=== PATIENT | female | born 1990 | race Caucasian/White ===

== ENCOUNTER 2023-07-08 23:16 | Emergency (ER) | payer BC ==
--- OUTSIDE RECORDS SUMMARY | 2023-07-08 23:19 | XMS REPORT | Continuity of Care Document ---
:1990 Author Organization [facility] t Address [address] [place] [address] [address] [place] [address] Care Team Providers Name Role Phone Claire Peters MD Primary Care Physician [phone] SCOTT BRITT III Attending Clinician Unavailable LAB90 Attending Clinician Unavailable Claire Peters MD Attending Clinician [phone] VEL FORD Attending Clinician Unavailable Nurse, Adc Pob Immunization Attending Clinician Unavailable Vel Ford DO Attending Clinician MAYKEL FROST Attending Clinician Unavailable Jacqueline Sanderson MD Attending Clinician JACQUELINE SANDERSON Attending Clinician Unavailable KASIE MORENO Attending Clinician Unavailable Kasie Moreno MD Attending Clinician Scott Britt MD Attending Clinician Only, Adc Test Attending Clinician Unavailable Doctor Unassigned, [place] Attending Clinician Unavailable Motility, Endoscopy Attending Clinician Unavailable 2, Adc Lab Attending Clinician Unavailable SCOTT BRITT III Admitting Clinician Unavailable JACQUELINE SANDERSON Admitting Clinician Unavailable Scott Britt MD Admitting Clinician Payers Payer Name Policy Type Policy Number Effective Date Expiration Date S ource [employer] CHOICE POS [id number] 2019 00:00:00 II [employer] 2 [id number] 2022 00:00:00 Problems Condition Condition Condition Status Onset Resolution Last Treating Co mments Source Name Details Category Date Date Treatment Clinician Date Flatulence Flatulence Disease Active Overview : Univers , , 07-01 Formattin ity of eructation eructation 00:00: g of this [place] , and gas , and gas 00 note Medi saúl pain pain might be Branch different from the original. Added automatic ally from request for surgery [id number] Seasonal Seasonal Disease Active 2016-10 Unive rs allergic allergic 11-15 ity of rhinitis rhinitis 00:00: [place] 00 Medical Branch Migraine Migraine Disease Active 2016-10 Unive rs without without 11-15 ity of aura and aura and 00:00: [place] without without 00 Medical status status Branch migrainosu migrainosu s, not s, not intractabl intractabl e e Irritable Irritable Disease Active 2016-10 Uni vers bowel bowel 11-15 ity of syndrome, syndrome, [place] un[place] unspecif[place] 00 Me dical d type d type Branch No known No known Disease Kelse y active active [place] problems problems Allergies, Adverse Reactions, Alerts Allergy Allergy Status Severity Reaction(s) Onset Inactive Treating Comm ents Source Name Type Date Date Clinician NO KNOWN Drug Active Univers ALLERGIE Class ity of S [facility] Social History Social Habit Start Date Stop Date Quantity Comments Source Exposure to Not sure University of SARS-CoV-2 [place] [facility] (event) Branch History SDOH University o f Alcohol Frequency [facility] edical Branch History SDOH University o f Alcohol Std [place] [facility] Drinks Branch History SDOH University o f Alcohol Binge [place] [facility] Alcohol intake 2020-08-06 2020-08-06 Current drinker Unive rsity of 00:00:00 00:00:00 of alcohol [place] [facility] (finding) Branch Alcohol Comment 2017-07-18 2017-07-18 socially Universit y of 00:00:00 00:00:00 [facility] Tobacco use and 2017-07-18 2017-07-18 Never used Universit y of exposure 00:00:00 00:00:00 [facility] Sex [birth year] At [birth year] Priscila Se ybold 00:00:00 00:00:00 Smoking Status Start Date Stop Date Source Never smoked tobacco Priscila Seyb old Medications Ordered Filled Start Stop Current Ordering Indication Dosage Frequency Signature Comments Components Source Medication Medication Date Date Medication? Clinician (SIG) Name Name Batsheva Yes 1{tbl} Take 1 Priscila 0.15-0.02/0 5-23 tablet by Inna bold .01 MG 00:00: mouth (19/03) oral 00 daily Tablet Terbinafine Yes 1{tbl} Take 1 Ke lsey HCl 250 MG 5- tablet by Seyb old oral Tablet 00:00: mouth 00 daily NaCl 0.9% 2020- No 1000mL at 999 Uni vers (NS) bolus 1-10 01-10 mL/hr, ity of infusion 18:00: 18:43 1,000 mL, Jeancarlos as 1,000 mL 00 :00 IV Medical Infusion, Branch ONCE, 1 dose, 11/08/20 at 1200, STAT barium 2019-10- No 340g 340 g, Univers sulfate 0-14 10-14 Oral, ity of (LIQUID E-Z 14:30: 13:30 [place]CE, [place] 60 % 00 :00 dose, Wed Med ical (w/v) oral 08/12/20 Branc h suspension at 0930, 340 g Routine hyoscyamine 2020-[id number] 1 Univers sulfate 8-20 tablet ity of (LEVSIN/SL) 00:00: under the [place] 0.125 mg 00 tongue Medical sublingual every 8 Branch tablet (eight) hours as needed (abdominal cramps). hyoscyamine 2020-[id number] 1 Univers sulfate 8-20 tablet ity of (LEVSIN/SL) 00:00: under the [place] 0.125 mg 00 tongue Medical sublingual every 8 Branch tablet (eight) hours as needed (abdominal cramps). hyoscyamine 2020-[id number] 1 Univers sulfate 8-20 tablet ity of (LEVSIN/SL) 00:00: under the [place] 0.125 mg 00 tongue Medical sublingual every 8 Branch tablet (eight) hours as needed (abdominal cramps). hyoscyamine 2020-[id number] 1 Univers sulfate 8-20 tablet ity of (LEVSIN/SL) 00:00: under the [place] 0.125 mg 00 tongue Medical sublingual every 8 Branch tablet (eight) hours as needed (abdominal cramps). hyoscyamine 2020-[id number] 1 Univers sulfate 8-20 tablet ity of (LEVSIN/SL) 00:00: under the [place] 0.125 mg 00 tongue Medical sublingual every 8 Branch tablet (eight) hours as needed (abdominal cramps). hyoscyamine 2020-[id number] 1 Univers sulfate 8-20 tablet ity of (LEVSIN/SL) 00:00: under the [place] 0.125 mg 00 tongue Medical sublingual every 8 Branch tablet (eight) hours as needed (abdominal cramps). hyoscyamine 2020-[id number] 1 Univers sulfate 8-20 tablet ity of (LEVSIN/SL) 00:00: under the [place] 0.125 mg 00 tongue Medical sublingual every 8 Branch tablet (eight) hours as needed (abdominal cramps). hyoscyamine 2020-[id number] 1 Univers sulfate 8-20 tablet ity of (LEVSIN/SL) 00:00: under the [place] 0.125 mg 00 tongue Medical sublingual every 8 Branch tablet (eight) hours as needed (abdominal cramps). hyoscyamine 2020-[id number] 1 Univers sulfate 8-20 tablet ity of (LEVSIN/SL) 00:00: under the [place] 0.125 mg 00 tongue Medical sublingual every 8 Branch tablet (eight) hours as needed (abdominal cramps). hyoscyamine 2020-[id number] 1 Univers sulfate 8-20 tablet ity of (LEVSIN/SL) 00:00: under the [place] 0.125 mg 00 tongue Medical sublingual every 8 Branch tablet (eight) hours as needed (abdominal cramps). hyoscyamine 2020-[id number] 1 Univers sulfate 8-20 tablet ity of (LEVSIN/SL) 00:00: under the [place] 0.125 mg 00 tongue Medical sublingual every 8 Branch tablet (eight) hours as needed (abdominal cramps). hyoscyamine 2020-[id number] 1 Univers sulfate 8-20 tablet ity of (LEVSIN/SL) 00:00: under the [place] 0.125 mg 00 tongue Medical sublingual every 8 Branch tablet (eight) hours as needed (abdominal cramps). hyoscyamine 2020-[id number] 1 Univers sulfate 8-20 tablet ity of (LEVSIN/SL) 00:00: under the [place] 0.125 mg 00 tongue Medical sublingual every 8 Branch tablet (eight) hours as needed (abdominal cramps). hyoscyamine 2020-[id number] 1 Univers sulfate 8-20 tablet ity of (LEVSIN/SL) 00:00: under the [place] 0.125 mg 00 tongue Medical sublingual every 8 Branch tablet (eight) hours as needed (abdominal cramps). dicyclomine 2016-10 Yes 1 - 2 Caps Univers 10 mg 1-17 Q6h prn ity of capsule 00:00: abdominal [place] 00 cramping Medical Branch dicyclomine 2017- Yes 1 - 2 Caps Univers 10 mg 1-17 Q6h prn ity of capsule 00:00: abdominal [place] 00 cramping Medical Branch dicyclomine 2016- Yes 1 - 2 Caps Univers 10 mg 1-17 Q6h prn ity of capsule 00:00: abdominal [place] 00 cramping Medical Branch dicyclomine 2016- Yes 1 - 2 Caps Univers 10 mg 1-17 Q6h prn ity of capsule 00:00: abdominal [place] 00 cramping Medical Branch dicyclomine 2017- Yes 1 - 2 Caps Univers 10 mg 1-17 Q6h prn ity of capsule 00:00: abdominal [place] 00 cramping Medical Branch dicyclomine 2017- Yes 1 - 2 Caps Univers 10 mg 1-17 Q6h prn ity of capsule 00:00: abdominal [place] 00 cramping Medical Branch dicyclomine 2017- Yes 1 - 2 Caps Univers 10 mg 1-17 Q6h prn ity of capsule 00:00: abdominal [place] 00 cramping Medical Branch dicyclomine 2016- Yes 1 - 2 Caps Univers 10 mg 1-17 Q6h prn ity of capsule 00:00: abdominal [place] 00 cramping Medical Branch dicyclomine 2016-10 2020- No 1 - 2 Caps Univers 10 mg 1-17 08-20 Q6h prn ity of capsule 00:00: 00:00 [place] 00 :00 cramping Medical Branch VIORELE, Yes TK 1 T PO Univ ers , 07-12 QD ity of 0.15-0.02 00:00: [place] mgx21 /0.01 00 Medical mg x 5 per Branch tablet VIORELE, Yes TK 1 T PO Univ ers , 07-12 QD ity of 0.15-0.02 00:00: [place] mgx21 /0.01 00 Medical mg x 5 per Branch tablet VIORELE, Yes TK 1 T PO Univ ers 07-12 QD ity of 0.15-0.02 00:00: [place] mgx21 /0.01 00 Medical mg x 5 per Branch tablet VIORELE, Yes TK 1 T PO Univ ers 07-12 QD ity of 0.15-0.02 00:00: [place] mgx21 /0.01 00 Medical mg x 5 per Branch tablet VIORELE, Yes TK 1 T PO Univ ers 07-12 QD ity of 0.15-0.02 00:00: [place] mgx21 /0.01 00 Medical mg x 5 per Branch tablet VIORELE, Yes TK 1 T PO Univ ers 07-12 QD ity of 0.15-0.02 00:00: [place] mgx21 /0.01 00 Medical mg x 5 per Branch tablet VIORELE, Yes TK 1 T PO Univ ers 07-12 QD ity of 0.15-0.02 00:00: [place] mgx21 /0.01 00 Medical mg x 5 per Branch tablet VIORELE, Yes TK 1 T PO Univ ers 07-12 QD ity of 0.15-0.02 00:00: [place] mgx21 /0.01 00 Medical mg x 5 per Branch tablet VIORELE, Yes TK 1 T PO Univ ers 07-12 QD ity of 0.15-0.02 00:00: [place] mgx21 /0.01 00 Medical mg x 5 per Branch tablet VIORELE, Yes TK 1 T PO Univ ers 07-12 QD ity of 0.15-0.02 00:00: [place] mgx21 /0.01 00 Medical mg x 5 per Branch tablet VIORELE, Yes TK 1 T PO Univ ers 07-12 QD ity of 0.15-0.02 00:00: [place] mgx21 /0.01 00 Medical mg x 5 per Branch tablet VIORELE, Yes TK 1 T PO Univ ers 07-12 QD ity of 0.15-0.02 00:00: [place] mgx21 /0.01 00 Medical mg x 5 per Branch tablet VIORELE, Yes TK 1 T PO Univ ers 07-12 QD ity of 0.15-0.02 00:00: [place] mgx21 /0.01 00 Medical mg x 5 per Branch tablet VIORELE, Yes TK 1 T PO Univ ers 07-12 QD ity of 0.15-0.02 00:00: [place] mgx21 /0.01 00 Medical mg x 5 per Branch tablet VIORELE, Yes TK 1 T PO Univ ers 07-12 QD ity of 0.15-0.02 00:00: [place] mgx21 /0.01 00 Medical mg x 5 per Branch tablet VIORELE, Yes TK 1 T PO Univ ers 07-12 QD ity of 0.15-0.02 00:00: [place] mgx21 /0.01 00 Medical mg x 5 per Branch tablet VIORELE, Yes TK 1 T PO Univ ers 07-12 QD ity of 0.15-0.02 00:00: [place] mgx21 /0.01 00 Medical mg x 5 per Branch tablet VIORELE, Yes TK 1 T PO Univ ers 07-12 QD ity of 0.15-0.02 00:00: [place] mgx21 /0.01 00 Medical mg x 5 per Branch tablet VIORELE, Yes TK 1 T PO Univ ers 07-12 QD ity of 0.15-0.02 00:00: [place] mgx21 /0.01 00 Medical mg x 5 per Branch tablet VIORELE, Yes TK 1 T PO Univ ers 07-12 QD ity of 0.15-0.02 00:00: [place] mgx21 /0.01 00 Medical mg x 5 per Branch tablet VIORELE, Yes TK 1 T PO [facility] ers 07-12 QD ity of 0.15-0.02 00:00: [place] mgx21 /0.01 00 Medical mg x 5 per Branch tablet VIORELE, Yes TK 1 T PO [facility] ers 07-12 QD ity of 0.15-0.02 00:00: [place] mgx21 /0.01 00 Medical mg x 5 per Branch tablet Immunizations Ordered Filled Immunization Date Status Comments [facility] e Immunization Name Name SARS-COV-2 COVID-19 2021-10-08 Completed Unive rsity of MODERNA BOOSTER 00:00:00 [facility] Branch SARS-COV-2 COVID-19 2021-03-01 Completed Unive rsity of MODERNA VACCINE 00:00:00 [facility] SARS-COV-2 COVID-19 2021-02-01 Completed Unive rsity of MODERNA VACCINE 00:00:00 [facility] Influenza Virus 2017-09-15 Completed Priscila qiuold Vaccine, No 00:00:00 Preserv, age 6 months and up Influenza Virus 2017-09-15 Completed Universit y of Vaccine Quad IM 3+ 00:00:00 [facility] Influenza Virus 2017-09-15 Completed Universit y of Vaccine Quad IM 3+ 00:00:00 [facility] Influenza Virus 2017-09-15 Completed Universit y of Vaccine Quad IM 3+ 00:00:00 [facility] Influenza Virus 2017-09-15 Completed Universit y of Vaccine Quad IM 3+ 00:00:00 [facility] Influenza Virus 2017-09-15 Completed Universit y of Vaccine Quad IM 3+ 00:00:00 [facility] Influenza Virus 2017-09-15 Completed Universit y of Vaccine Quad IM 3+ 00:00:00 [facility] Influenza Virus 2017-09-15 Completed Universit y of Vaccine Quad IM 3+ 00:00:00 [facility] Influenza Virus 2017-09-15 Completed Universit y of Vaccine Quad IM 3+ 00:00:00 [facility] Influenza Virus 2017-09-15 Completed Universit y of Vaccine Quad IM 3+ 00:00:00 [facility] Influenza Virus 2017-09-15 Completed Universit y of Vaccine Quad IM 3+ 00:00:00 [facility] Influenza Virus 2017-09-15 Completed Universit y of Vaccine Quad IM 3+ 00:00:00 [facility] Influenza Virus 2017-09-15 Completed Universit y of Vaccine Quad IM 3+ 00:00:00 [facility] Influenza Virus 2017-09-15 Completed Universit y of Vaccine Quad IM 3+ 00:00:00 [facility] Influenza Virus 2017-09-15 Completed Universit y of Vaccine Quad IM 3+ 00:00:00 [facility] Influenza Virus 2017-09-15 Completed Universit y of Vaccine Quad IM 3+ 00:00:00 [facility] Influenza Virus 2017-09-15 Completed Universit y of Vaccine Quad IM 3+ 00:00:00 [facility] Influenza Virus 2017-09-15 Completed Universit y of Vaccine Quad IM 3+ 00:00:00 [facility] Influenza Virus 2017-09-15 Completed Universit y of Vaccine Quad IM 3+ 00:00:00 [facility] Influenza Virus 2017-09-15 Completed Universit y of Vaccine Quad IM 3+ 00:00:00 [facility] Influenza Virus 2017-09-15 Completed Universit y of Vaccine Quad IM 3+ 00:00:00 [facility] Influenza Virus 2017-09-15 Completed Universit y of Vaccine Quad IM 3+ 00:00:00 [facility] Influenza Virus 2017-09-15 Completed Universit y of Vaccine Quad IM 3+ 00:00:00 [facility] Vital Signs Vital Name Observation Time Observation Value Comments Source Heart rate 2022-03-24 19:53:00 70 /min Priscila dos santos Body temperature 2022-03-24 19:53:00 36.17 Joan Emma Hernandez Respiratory rate 2022-03-24 19:53:00 14 /min Emma Hernandez Body height 2022-03-24 19:53:00 170.2 cm Priscila dos santos Body weight 2022-03-24 19:53:00 70.308 kg Priscila dos santos BMI 2022-03-24 19:53:00 24.28 kg/m2 Priscila dos santos Systolic blood 2022-03-24 19:53:00 118 mm[Hg] Priscila Hernandez pressure Diastolic blood 2022-03-24 19:53:00 78 mm[Hg] Slime Hernandez pressure Systolic blood 2020-11-08 17:10:00 126 mm[Hg] Univer sity of pressure [place] [facility] Diastolic blood 2020-11-08 17:10:00 77 mm[Hg] Unive rsity of pressure [place] [facility] Heart rate 2020-11-08 17:10:00 109 /min Universi ty of [place] [facility] Respiratory rate 2020-11-08 17:10:00 18 /min Univ ersity of [place] [facility] Oxygen saturation in 2020-11-08 17:10:00 98 /min University of Arterial blood by [place] [facility] Pulse oximetry Branch Body temperature 2020-11-08 16:25:00 36.72 Joan Univ ersity of [place] [facility] Body weight 2020-11-08 16:25:00 61.236 kg Universi ty of [place] [facility] BMI 2020-11-08 16:25:00 21.14 kg/m2 Universi ty of [place] [facility] Systolic blood 2020-08-06 14:05:00 133 mm[Hg] Univer sity of pressure [place] [facility] Diastolic blood 2020-08-06 14:05:00 82 mm[Hg] Unive rsity of pressure [place] [facility] Heart rate 2020-08-06 14:05:00 100 /min Universi ty of [place] [facility] Body temperature 2020-08-06 14:05:00 36.83 Joan Univ ersity of [place] [facility] Respiratory rate 2020-08-06 14:05:00 18 /min Univ ersity of [place] [facility] Body height 2020-08-06 14:05:00 170.2 cm Universi ty of [place] [facility] Body weight 2020-08-06 14:05:00 61.236 kg Universi ty of [place] [facility] BMI 2020-08-06 14:05:00 21.14 kg/m2 Universi ty of [place] [facility] Oxygen saturation in 2020-08-06 14:05:00 99 /min University of Arterial blood by [place] Noosh saúl Pulse oximetry Branch Systolic blood 2020-04-24 13:58:00 115 mm[Hg] Univer sity of pressure [place] [facility] Diastolic blood 2020-04-24 13:58:00 80 mm[Hg] Unive rsity of pressure [facility] Heart rate 2020-04-24 13:58:00 87 /min [facility] Body temperature 2020-04-24 13:58:00 36.39 Joan [facility] Body height 2020-04-24 13:58:00 170.2 cm [facility] Body weight 2020-04-24 13:58:00 62.732 kg [facility] BMI 2020-04-24 13:58:00 21.66 kg/m2 [facility] Oxygen saturation in 2020-04-24 13:58:00 100 /min [facility] Arterial blood by [facility] Pulse oximetry [place] Procedures Procedure Date / Time Performed Performing Clinician [facility] e SARS-COV-2 COVID-19 2021-10-08 20:02:14 [facility]igned, [facility] Name [facility] BOOSTER,0.25ML,IM (MODERNA) CT CERVICAL SPINE WO 2020-11-08 17:41:10 Jacqueline Sanderson [facility] CONTRAST [facility] CT HEAD WO CONTRAST 2020-11-08 17:41:10 Jacqueline Sanderson [facility] XR HIP 1 VW RIGHT 2020-11-08 17:40:47 Kin [facility] POCT TEST 2020-11-08 17:23:00 Jacqueline Sanderson [facility] LIPASE 2020-11-08 17:17:00 Jacqueline Sanderson [facility] TROPONIN I 2020-11-08 17:17:00 Kin Jacqueline [facility] HEPATIC FUNCTION PANEL 2020-11-08 17:17:00 Jacqueline Sanderson [facility] ([id number]) [facility] (ALB,T.PRO,BILI T,BU/BC,ALT,AST,ALK PHOS) BASIC METABOLIC PANEL 2020-11-08 17:17:00 Jacqueline Sanderson [facility] (NA, K, CL, CO2, Medical Branch GLUCOSE, BUN, CREATININE, CA) CBC WITH DIFF 2020-11-08 17:17:00 Jacqueline Sanderson [facility] ACTIVATED PARTIAL 2020-11-08 17:17:[address] [facility] THRMPLAS FIONA [facility] URINALYSIS 2020-11-08 17:16:00 Jacqueline Sanderson Quitaque o f [facility] ADC / LCC - DRUG 2020-11-08 17:16:[address] [facility] SCREEN TRIAGE [facility] HB ECG ROUTINE & 2020-11-08 17:05:[address] [facility] RHYTHM STRIP [facility] Branch CONSENT/REFUSAL FOR 2020-11-08 16:15:59 Doctor Unassigned, No [facility] DIAGNOSIS AND [facility] Medical Branch TREATMENT [place] BARIUM SWALLOW 2020-08-12 14:26:[address] [facility] ESOPHAGUS [facility] Branch ASSIGNMENT OF BENEFITS 2020-07-13 18:30:49 Doctor Unassigned, No [facility] Name [facility] ASSIGNMENT OF BENEFITS 2020-04-08 15:38:56 Doctor Unassigned, No [facility] Encounters Start End Encounter Admission Attending Care Care Encounter Source Date/Time Date/Time Type Type Clinicians Facility Department ID 2021-08-27 Outpatient R KING JANELLE [facility] GIE [id number] Univers 15:44:20 SCOTT [facility] 2022-03-24 2022-03-24 Outpatient LAB90 PRISCILA LUNDBERG [id number] Priscila 15:45:00 15:45:00 Seybol yulissa 2022-03-24 2022-03-24 Office Holden Peters [id number] Priscila 15:00:00 15:30:00 Visit Claire Zimmerman [id number] Se nicole Jackson [id number] 2021-10-08 2021-10-08 Outpatient R LILIANA [facility] [id number] Univers 13:40:00 13:39:55 VEL meza [facility] 2021-10-08 2021-10-08 Imm/Inj Nurse, Adc Pob Immunization [facility] [id number] Univers 13:39:34 13:39:55 Visit Vel Ford 350.1.13 .10 derrick [facility] [id number] Maico irizarry PROFESSIO [id number] Ma dical NAL [address] [facility] 2021-03-01 2021-03-01 [facility] [id number] Univers 16:30:00 16:30:00 MAYEKL ity [facility] 2021-02-01 2021-02-01 Outpatient [facility] [id number] Univers 17:00:00 17:00:00 ity [facility] 2020-11-08 2020-11-08 Emergency [facility] [id number] Univers 10:26:00 12:51:00 Jacqueline Peng [id number] i ty of [place] 4.2.7.2.686 [facility] [id number] [facility] 084 [place] 2020-11-08 2020-11-08 Emergency X [facility] ERT [id number] Univers 10:26:00 12:51:00 JACQUELINE [facility] 2020-10-15 2020-10-15 Outpatient R [facility] [id number] Univers 10:30:00 10:30:00 KASIE [facility] 2020-10-15 2020-10-15 Telemedici [facility] [id number] Univers 07:58:36 08:28:36 ne Visit Kasie LYNNE [id number] ity of [facility] 4.2.7.2.686 [facility] AT [id number] Ma dicarlin HODGEY 072 [facility] 2020-08-12 2020-08-12 [facility] [id number] Univers 08:23:43 23:59:00 Encounter Kasie Peng [id number] ity [facility] 4.2.7.2.686 [facility] [id number] [facility] [place] 807 [place] 2020-08-12 2020-08-12 Outpatient R [facility] [id number] Univers 00:00:00 00:00:00 KASIE [facility] 2020-08-06 2020-08-06 Office [facility] [id number] Univers 09:00:18 10:09:59 Visit Kasie SPECIALTY [id number] ity of CARE 4.2.7.2.686 [facility] CENTER AT [id number] Ma olga JIM 072 [facility] 2020-08-06 2020-08-06 Outpatient R TIFFANIE [facility] [id number] Univers 09:00:00 09:00:00 KASIE ity of [facility] 2020-07-21 2020-07-21 Patient Tiffanie [facility] [id number] Univers 00:00:00 00:00:00 Secure Msg Kasie SPECIALTY [id number] ity of CARE 4.2.7.2.686 [facility] CENTER AT [id number] Ma olga JIM 2 [facility] 2020-07-15 2020-07-15 Hospital Balwinder Scott [facility] [id number] Univers 09:24:00 13:40:00 Encounter C ICAL [id number] ity of SCIENCES 4.2.7.2.686 Jeancarlos as BLDG [id number] [facility] 020 [place] 2020-07-13 2020-07-13 Laboratory Only, Adc Test [facility] 1.2.840. [id number] Univers 13:33:30 13:48:30 Only Kasie Moreno Ginette [id number] ity of [place] 4.2.7.2.686 [facility] [id number] [facility] 353 [place] 2020-07-13 2020-07-13 Outpatient R [facility] [id number] Univers 13:30:00 13:30:00 ity of [facility] 2020-07-13 2020-07-13 Orders Doctor ANNY [id number] Univers 00:00:00 00:00:00 Only Unassigned, TANYA [id number] ity of [place] [facility] 4.2.7.2.686 Jeancarlos as [id number] [facility] 009 [place] 2020-07-01 2020-07-01 Telephone Motility, [facility] [id number] Univers 00:00:00 00:00:00 Endoscopy ICAL [id number] ity of SCIENCES 4.2.7.2.686 Jeancarlos as BLDG [id number] [address] 2020-06-19 2020-06-19 Telephone [facility] 1.2.840.114 [id number] Univers 00:00:00 00:00:00 Endoscopy ICAL [id number] ity of SCIENCES 4.2.7.2.686 Jeancarlos as BLDG [id number] [address] 2020-06-18 2020-06-18 Outpatient R [facility] [id number] Univers 10:00:00 10:00:00 [facility] 2020-06-18 2020-06-18 Telemedici [facility] [id number] Univers 06:37:25 07:07:25 ne Visit Kasie SPECIALTY [id number] ity of CARE [place] [phone] Ma olga NAVEENNata [address] [place] [address] 2020-06-18 2020-06-18 Prep For [facility] [id number] Univers 00:00:00 00:00:00 Surgery Kasie SPECIALTY [id number] [place] [phone] Ma olga NAVEENNata [address] [place] [address] 2020-04-24 2020-04-24 Office [facility] [id number] Univers 08:54:23 09:26:45 Visit Kasie SPECIALTY [id number] [place] [phone] Ma olga NAVEENNata [address] [place] [address] 2020-04-24 2020-04-24 Outpatient R [facility] [id number] Univers 09:00:00 09:00:00 KASIE [facility] 2020-04-14 2020-04-14 Patient [facility] [id number] Univers 00:00:00 00:00:00 Secure Msg Kasie SPECIALTY [id number] [place] [phone] Ma dical NAVEENY 072 [facility] 2020-04-08 2020-04-08 Consultant Nurse 2, Adc Lab [facility] [id number] Univers 10:34:31 10:49:31 Visit Kasie [place] 350.1.13.10 [place] of [place] [phone] Ma dical nal 353 [facility] 2020-04-08 2020-04-08 Outpatient R [facility] [id number] Univers 10:30:00 10:30:00 [facility] 2020-04-08 2020-04-08 Orders Doctor ANNY [id number] Univers 00:00:00 00:00:00 Only Unassigned, TANYA 350.1.13.10 ity of [place] 4.2.7.2.686 Jeancarlos as [phone] Medi [address] 2020-04-03 2020-04-03 Telemedici [facility] 1.2.840.114 [id number] Univers 14:37:01 15:07:01 ne Visit Kasie [facility] 350.1.13.10 ity of [facility] 4[place]2.[place].2.[place] [phone] Ma dicarlin HODEGY 072 [facility] 2020-04-03 2020-04-03 Outpatient R [facility] [id number] Univers 14:30:00 14:30:00 [facility] Results Test Test Test Results Result Source Description Time Comments Comments CT HEAD WO 2020-10- No acute intracranial Un iversity of CONTRAST 10 abnormalities. Mild soft [facility] 18:24:18 tissue swelling [facility] theright supraorbital scalp. Unremarkable CT examination of the cervical spine. Preliminary Report Dictated by Resident: Salomon Pritchett MD., have reviewed this study and agree with the abovereport.CT HEAD WO CONTRASTCT CERVICAL SPINE WO CONTRAST HISTORY: Head trauma, headache COMPARISON: None. TECHNIQUE: Contiguous axial imaging to the base of skull was obtained with2.5 mm slices without intravenous contrast. 5 mm axial, coronal, andsagittal reformats were obtained. Contiguous axial imaging of the cervical spine from the base of the skullto the thoracic inlet was performed with 2.5 mm slices. Coronal andsagittal reformats were obtained. FINDINGS: The ventricles and cerebral sulci are normal in caliber and configuration.No hydrocephalus, midline shift or pathological extra-axial fluidcollection is present. The basal cisterns are unremarkable. There is no acute intracranial hemorrhage or significant mass effect.Hyperdensity along the left frontal convexity is likely artifactual. Noother parenchymal attenuation abnormality. The calderón-white matterdifferentiation is preserved. The mastoid air cells and visualized paranasal air sinuses are clear. Thecalvarium and central skull base are unremarkable. Mild soft tissueswelling about the right supraorbital scalp. Cervical Spine: The normal cervical lordosis is maintained. The vertebral bodies are normalin height and in normal alignment. No facet fracture or subluxation ispresent. No canal stenosis or neural foraminal narrowing. Thecraniocervical junction is intact. The prevertebral soft tissues are unremarkable. The visualized lung apicesare unremarkable. [facility], [facility] Results Inft User - 11/08/2020 12:25 PM CSTCT HEAD WO CONTRASTCT CERVICAL SPINE WO CONTRASTHISTORY: Head trauma, headache COMPARISON: None.TECHNIQUE: Contiguous axial imaging to the base of skull was obtained with2.5 mm slices without intravenous contrast. 5 mm axial, coronal, andsagittal reformats were obtained.Contiguous axial imaging of the cervical spine from the base of the skullto the thoracic inlet was performed with 2.5 mm slices. Coronal andsagittal reformats were obtained.FINDINGS:The ventricles and cerebral sulci are normal in caliber and configuration.No hydrocephalus, midline shift or pathological extra-axial fluidcollection is present. The basal cisterns are unremarkable.There is no acute intracranial hemorrhage or significant mass effect.Hyperdensity along the left frontal convexity is likely artifactual. Noother parenchymal attenuation abnormality. The calderón-white matterdifferentiation is preserved.The mastoid air cells and visualized paranasal air sinuses are clear. Thecalvarium and central skull base are unremarkable. Mild soft tissueswelling about the right supraorbital scalp.Cervical Spine:The normal cervical lordosis is maintained. The vertebral bodies are normalin height and in normal alignment. No facet fracture or subluxation ispresent. No canal stenosis or neural foraminal narrowing. Thecraniocervical junction is intact.The prevertebral soft tissues are unremarkable. The visualized lung apicesare unremarkable.IMPRESSIONNo acute intracranial abnormalities. Mild soft tissue swelling about theright supraorbital scalp.Unremarkable CT examination of the cervical spine.Preliminary Report Dictated by Resident: Salomon Pang MD., have reviewed this study and agree with the abovereport. CT CERVICAL 2020-10- No acute intracranial U niversity of SPINE WO 10 abnormalities. Mild soft [facility] CONTRAST 18:24:18 tissue swelling about Bra inh theright supraorbital scalp. Unremarkable CT examination of the cervical spine. Preliminary Report Dictated by Resident: Salomon Pritchett MD., have reviewed this study and agree with the abovereport.CT HEAD WO CONTRASTCT CERVICAL SPINE WO CONTRAST HISTORY: Head trauma, headache COMPARISON: None. TECHNIQUE: Contiguous axial imaging to the base of skull was obtained with2.5 mm slices without intravenous contrast. 5 mm axial, coronal, andsagittal reformats were obtained. Contiguous axial imaging of the cervical spine from the base of the skullto the thoracic inlet was performed with 2.5 mm slices. Coronal andsagittal reformats were obtained. FINDINGS: The ventricles and cerebral sulci are normal in caliber and configuration.No hydrocephalus, midline shift or pathological extra-axial fluidcollection is present. The basal cisterns are unremarkable. There is no acute intracranial hemorrhage or significant mass effect.Hyperdensity along the left frontal convexity is likely artifactual. Noother parenchymal attenuation abnormality. The calderón-white matterdifferentiation is preserved. The mastoid air cells and visualized paranasal air sinuses are clear. Thecalvarium and central skull base are unremarkable. Mild soft tissueswelling about the right supraorbital scalp. Cervical Spine: The normal cervical lordosis is maintained. The vertebral bodies are normalin height and in normal alignment. No facet fracture or subluxation ispresent. No canal stenosis or neural foraminal narrowing. Thecraniocervical junction is intact. The prevertebral soft tissues are unremarkable. The visualized lung apicesare unremarkable. [facility], [facility] Results Inft User - 11/08/2020 12:25 PM CSTCT HEAD WO CONTRASTCT CERVICAL SPINE WO CONTRASTHISTORY: Head trauma, headache COMPARISON: None.TECHNIQUE: Contiguous axial imaging to the base of skull was obtained with2.5 mm slices without intravenous contrast. 5 mm axial, coronal, andsagittal reformats were obtained.Contiguous axial imaging of the cervical spine from the base of the skullto the thoracic inlet was performed with 2.5 mm slices. Coronal andsagittal reformats were obtained.FINDINGS:The ventricles and cerebral sulci are normal in caliber and configuration.No hydrocephalus, midline shift or pathological extra-axial fluidcollection is present. The basal cisterns are unremarkable.There is no acute intracranial hemorrhage or significant mass effect.Hyperdensity along the left frontal convexity is likely artifactual. Noother parenchymal attenuation abnormality. The calderón-white matterdifferentiation is preserved.The mastoid air cells and visualized paranasal air sinuses are clear. Thecalvarium and central skull base are unremarkable. Mild soft tissueswelling about the right supraorbital scalp.Cervical Spine:The normal cervical lordosis is maintained. The vertebral bodies are normalin height and in normal alignment. No facet fracture or subluxation ispresent. No canal stenosis or neural foraminal narrowing. Thecraniocervical junction is intact.The prevertebral soft tissues are unremarkable. The visualized lung apicesare unremarkable.IMPRESSIONNo acute intracranial abnormalities. Mild soft tissue swelling about theright supraorbital scalp.Unremarkable CT examination of the cervical spine.Preliminary Report Dictated by Resident: Salomon Pang MD., have reviewed this study and agree with the abovereport. XR HIP 1 VW 2020-10- Unremarkable single view [facility] of RIGHT 10 of the right hip. EXAM: [facility] 18:05:48 XR HIP 1 VW RIGHT Branch HISTORY: pain s/p fall COMPARISON: None FINDINGS: Single view of the hip demonstrates maintenance of alignment with nofracture. [facility], [facility] Results Inft User - 11/08/2020 12:06 PM CSTEXAM:XR HIP 1 VW RIGHTHISTORY:pain s/p fall COMPARISON:NoneFINDINGS: Single view of the hip demonstrates maintenance of alignment with nofracture.IMPRESSIONUnre markable single view of the right hip. Troponin I 2020-11-08 17:59:00 Test Item Value Reference Range Interpretation Comme nts TROPONIN I (test code = <0.012 See_Comment [Au tomated message] The [id number]) system which ge nerated this result tra nsmitted reference range : <=0.034 ng/mL. The refe rence range was not u sed to interpret this result as normal/abnormal . PHYLLIS (test code = PHYLLIS) Equal or Less than 0.034 ng/ml---Normal ?Note: Cardiac troponin begins to rise 3-4 hours after the onset of ischemia. Repeat in 4-6 hours if the sample was drawn within 3-4 hours of the onset of the symptom and found normal. Between 0.035 and 0.120 ng/mL--- Borderline. Questionable myocardial injury or necrosis ? ?Note: Serial measurement may be necessary to confirm or exclude the diagnosis of myocardial injury or necrosis; Clinical correlation (symptoms, EKGs, imaging studies, and others) required; Repeat in 4-6 hours if clinically indicated. ? Equal or Higher than 0.121 ng/mL---Abnormal. Myocardial Injury or Necrosis Likely ? Biotin has been reported to cause a negative bias, interpret results relative to patient's use of biotin. ? Lab Interpretation (test Normal code = 45191-5) [facility] Test Item Value Reference Range Interpretation Comments APPEARANCE (test code = Clear Clear 0933583496) COLOR (test code = Straw Yellow A 1283232834) PH (test code = 4.8-8.0 4445713774) SP GRAVITY (test code = 1.003-1.030 8694832058) GLU U QUAL (test code = Normal Normal 3279972710) BLOOD (test code = Negative Negative 7703709067) KETONES (test code = Negative Negative 2341041783) PROTEIN (test code = Negative Negative 2887-8) UROBILIN (test code = Normal Normal 9185791320) BILIRUBIN (test code = Negative Negative 3328299079) NITRITE (test code = Negative Negative 4251179202) LEUK LISA (test code = Negative Negative 2591883794) RBC/HPF (test code = See_Comment [Autom ated message] 6409137595) The system [employer] generated this result transmitted ref erence range: 0 - 3 HP F. The reference range was not used to int erpret this result as normal/abnormal . WBC/HPF (test code = See_Comment [Autom ated message] 0332812412) The system [employer] generated this result transmitted ref erence range: 0 - 5 HP F. The reference range was not used to int erpret this result as normal/abnormal . BACTERIA (test code = Few Negative A 0696191394) SQ EPITH (test code = <1 HPF 2073791634) Lab Interpretation (test Abnormal code = 13537-5) [facility] / [facility] - DRUG SCREEN [id number] 17:50:00 Test Item Value Reference Range Interpretation Comments BENZO U (test code = Negative Negative 2349799814) MILTON U (test code = Negative Negative 8992518752) AMPHET (test code = Negative Negative 8612669190) THC (test code = Negative Negative 9314964346) METHADONE (test code = Negative Negative 4994766659) Meth U (test code = Negative Negative 0461472487) OPIATES (test code = Negative Negative 1830915899) Cocaine Metabolite (test Negative Negative code = 8254665800) PROPOXY (test code = Negative Negative 2083371044) Tric U (test code = Negative Negative 8870609656) PCP (test code = Negative Negative 1006753405) OXYCOD (test code = Negative Negative 2114353319) PHYLLIS (test code = PHYLLIS) Urine Drug Cutoff Ranges Benzodiazepines: ? ? 150 ng/mLBarbiturates: ?200 ng/mLAmphetamine: ? 500 ng/mLCannabinoids: ?50 ?ng/mLMethadone: ? 200 ng/mLMethamphetamine: ? ? 500 ng/mL Opiates: ? 100 ng/mL or 2000 ng/mLCocaine: ? 150 ng/mLPropoxyphene: ?300 ng/mLTricyclics: ?300 ng/mLOxycodone: ? 100 ng/mLPCP: ? 25 ?ng/mL The results are to be used only for medical (i.e., treatment) purposes. Unconfirmed screening results must not be used for non-medical purposes (e.g., employment testing, legal testing). Lab Interpretation (test Normal code = 56740-6) [facility] Metabolic Panel (NA, K, CL, CO2, GLUCOSE, BUN, CREATININE, CA)2020-11-08 17:47:00 Test Item Value Reference Range Interpretation Comments NA (test code = 138 mmol/L 135-145 1122595436) K (test code = 3.9 mmol/L 3.5-5 3964564936) CL (test code = 104 mmol/L 98-108 3703398829) CO2 TOTAL (test code = 26 mmol/L 23-31 2090727744) AGAP (test code = 2-16 2084955866) BUN (test code = 9 mg/dL 7-23 5990114912) GLUCOSE (test code = 114 mg/dL 70-110 H 9079983899) CREATININE (test code = 0.62 mg/dL 0.5-1.04 3489264969) CALCIUM (test code = 9.3 mg/dL 8.6-10.6 2561388661) eGFR Calculation mL/min/1.73m2 (Non-) (test code = 7657655928) eGFR Calculation mL/min/1.73m2 () (test code = 1635153484) PHYLLIS (test code = PHYLLIS) Association of Glomerular Filtration Rate (GFR) and Staging of Kidney Disease* + --+ --+ ------+| GFR (mL/min/1.73 m2) ?| With Kidney Damage ?| ?Without Kidney Damage+ --------+ --------+ +| ?>90 ?| ?Stage one ?| ? Normal ?+ ---+ ---+ -------+| ?60-89 ?| ?Stage two ?| ? Decreased GFR ? + --+ --+ ------+| ?30-59 ?| ?Stage three ?| ? Stage three ? + --+ --+ ------+| ?15-29 ?| ?Stage four ? | ? Stage four ?+ ---+ ---+ -------+| ?<15 (or dialysis) ? ?| ?Stage five ? | ? Stage five ?+ ---+ ---+ -------+ *Each stage assumes the associated GFR level has been in effect for at least three months. ?Stages 1 to 5, with or without kidney disease, indicate chronic kidney disease. Notes: Determination of stages one and two (with eGFR >59mL/min/1.73 m2) requires estimation of kidney damage for at least three months as defined by structural or functional abnormalities of the kidney, manifested by either:Pathological abnormalities or Markers of kidney damage (including abnormalities in the composition of the blood or urine or abnormalities in imaging tests). Lab Interpretation Abnormal (test code = 53807-7) [facility] (ALB, T.PRO, BILI T, BU/BC, ALT, AST, ALK PHOS)2020-11-08 17:47:00 Test Item Value Reference Range Interpretation Comments TOTAL BILI (test code = 0193598091) 0.6 mg/dL 0.1-1.1 BILI UNCON (test code = 2131861139) 0.6 mg/dL 0.1-1.1 BILI CONJ (test code = 0937121382) 0.0 mg/dL 0-0.3 T PROTEIN (test code = 5878158439) 8.1 g/dL 6.3-8.2 ALBUMIN (test code = 3254096421) 4.5 g/dL 3.5-5 ALK PHOS (test code = 7213247812) 69 U/L 34-122 ALTv (test code = 1742-6) 22 U/L 5-35 AST(SGOT) (test code = 9210874219) 26 U/L 13-40 Lab Interpretation (test code = Normal 78404-2) [facility] [id number] 17:47:00 Test Item Value Reference Range Interpretation Comments LIPASE (test code = 9506045329) 64 U/L 0-220 Lab Interpretation (test code = Normal 71812-8) [facility] 17:46:00 Test Item Value Reference Range Interpretation Comments APTT Patient (test See_Comment [Automat ed code = 3173-2) message] The system which generated this result transmitted reference range : 23 - 38 Seconds . The reference range was not used to interpr et this result as normal/abnormal . PHYLLIS (test code = PHYLLIS) The [facility] patient population mean normal value for aPTT is 30 seconds. Lab Interpretation Normal (test code = 95950-3) [facility] with [id number] 17:33:00 Test Item Value Reference Range Interpretation Comments WBC (test code = See_Comment [Automated 3415-2) message] The sy stem which generated this result transmitted reference range : 4.30 - 11.10 10*3/?L. The reference range was not used to interpret this result as normal/abnormal . RBC (test code = See_Comment [Automated 789-8) message] The sy stem which generated this result transmitted reference range : 3.93 - 5.25 10*6/?L. The reference range was not used to interpret this result as normal/abnormal . HGB (test code = 13.6 g/dL 11.6-15 718-7) HCT (test code = 41.3 % 35.7-45.2 4544-3) MCV (test code = 88.4 fL 80.6-95.5 787-2) MCH (test code = 29.1 pg 25.9-32.8 785-6) MCHC (test code = 32.9 g/dL 31.6-35.1 786-4) RDW-SD (test code = 37.1 fL 39-49.9 L 65220-3) RDW-CV (test code = 11.6 % 12-15.5 L 788-0) PLT (test code = See_Comment [Automated 777-3) message] The sy stem which generated this result transmitted reference range : 166 - 358 10*3/ ?L. The reference r mary was not used to interpret this result as normal/abnormal . MPV (test code = 9.8 fL 9.5-12.9 52248-2) NRBC/100 WBC (test See_Comment [Automat ed code = 2733701423) message] The system which generated this result transmitted reference range : 0.0 - 10.0 /100 WBCs. The refer ence range was not u sed to interpret th is result as normal/abnormal . NRBC x10^3 (test code <0.01 See_Comment [Auto mated = 5925533903) message] The s ystem which generated this result transmitted reference range : 10*3/?L. The reference range was not used to interpret this result as normal/abnormal . GRAN MAT (NEUT) % 82.5 % (test code = 770-8) IMM GRAN % (test code 0.30 % = 2095001703) LYMPH % (test code = 13.5 % 736-9) MONO % (test code = 3.4 % 5905-5) EOS % (test code = 0.0 % 713-8) BASO % (test code = 0.3 % 706-2) GRAN MAT x10^3(ANC) 5.88 10*3/uL 1.88-7.09 (test code = 6538205738) IMM GRAN x10^3 (test <0.03 0-0.06 code = 4763320388) LYMPH x10^3 (test code 0.96 10*3/uL 1.32-3.29 L = 731-0) MONO x10^3 (test code 0.24 10*3/uL 0.33-0.92 L = 742-7) EOS x10^3 (test code = <0.03 0.03-0.39 L 711-2) BASO x10^3 (test code <0.03 0.01-0.07 = 704-7) Lab Interpretation Abnormal (test code = 51263-3) [facility] [id number] 17:23:00 Test Item Value Reference Range Interpretation Comments POCT PREG (test code = 1605) negative POCT PREG LOT # (test code = 3575) [id number] POCT PREG TEST DATE (test 06/29/2022 code = 3576) Lab Interpretation (test code = Normal 03080-3) [facility] BARIUM SWALLOW [id number] 14:36:56 HISTORY: Postprandial belching and upper abdominal discomfort. Evaluate forhiatal hernia. TECHNIQUE:Barium swallow/esophagram were obtained using overheadradiography technique as well as digital fluoroscopic technique done by mewith the patient in multiple positions. FINDINGS: Swallowing function appear normal, except for transient reflux ofsmall amount of barium into the lower posterior nasopharynx. Esophagus appears of normal size and shape with no focal mucosal lesions.No stricture or diverticula seen. I was unable to demonstrate hiatal herniawith Valsalva technique. No gastroesophageal reflux.Sluggish peristalsiswas noted allowing prolonged retention of the barium in the middle/loweresophageal lumen. CONCLUSIONS: Mild esophageal dysmotility. No hiatal hernia orgastroesophageal reflux. [facility] Results Inft User - 08/12/2020 9:38 AM CDTHISTORY: Postprandial belching and upper abdominal discomfort. Evaluate forhiatal hernia.TECHNIQUE: Barium swallow/esophagram were obtained using overheadradiography technique as well as digital fluoroscopic technique done by mewith the patient in multiple positions.FINDINGS: Swallowing function appear normal, except for transient reflux ofsmall amount of barium into the lower posterior nasopharynx. Esophagus appears of normal size and shape with no focal mucosal lesions.No stricture or diverticula seen. I was unable to demonstrate hiatal herniawithValsalva technique. No gastroesophageal reflux. Sluggish peristalsiswas noted allowing prolonged retention of the barium in the middle/loweresophageal lumen.CONCLUSIONS: Mild esophageal dysmotility. Nohiatal hernia orgastroesophageal reflux.[facility]"
[2023-07-08 23:46] LABS: Absolute Lymphocytes (CBC) 2.2 K/uL (0.7-4.9); Hematocrit 41.3 % (36.0-45.0); Lymphocytes % 28.7 % (15.3-44.8); MCV 89.6 fL (80-100); MPV 8.3 fL (7.6-11.3); Platelets 276 thou/uL (152-406); RBC Red Blood Cell Count 4.61 M/uL (3.86-4.86)
[2023-07-08] MEDS ORDERED: NA CHLORIDE 0.9% 1,000 ML ONE (23:53)
[2023-07-08] MEDS ORDERED: LIDOCAINE 1% MPF 5 ML VIAL ONE (23:53)
[2023-07-09 00:08] LABS: ALT/SGPT 22 U/L (13-56); Albumin 3.6 g/dL (3.4-5.0); Alkaline Phosphatase 93 U/L (45-117); BUN Blood Urea Nitrogen 13 mg/dL (7-18); Bicarbonate 25 mEq/L (21-32); Bilirubin Total 0.3 mg/dL (0.2-1.0); Glomerular Filtration Rate 76 ml/min (=/>90); Glucose Level 118 mg/dL (74-106); Protein, Total 7.7 g/dL (6.4-8.2); Sodium Level 137 mEq/L (136-145); Troponin High Sensitivity 4.6 pg/mL (<58.9)
[2023-07-09 00:11] LABS: AST/SGOT 15 U/L (15-37); Bilirubin Direct < 0.1 mg/dL (0-0.2); Bilirubin Indirect, Calculated ND mg/dL (0.2-0.8); Potassium 3.8 mEq/L (3.5-5.1)
--- NOTE | 2023-07-09 01:54 | ER ---
Nurse's Notes [facility] Name: Margret Cardona Age: 32 yrs Sex: Female : 1990 Arrival Date: 07/08/2023 Time: 23:16 Bed 6 Private MD: Diagnosis: Syncope;Scalp laceration Presentation: 07/08 23:22 Chief complaint: EMS states: stood from sitting position and had syncopal episode lg3 hitting back of head on tile. 3-5cm laceration noted to back of scalp. bleeding controlled. Coronavirus screen: Client denies travel out of the [place] in the last 14 days. At this time, the client does not indicate any symptoms associated with coronavirus-19. Ebola Screen: No symptoms or risks identified at this time. Initial Sepsis Screen: Does the patient meet any 2 criteria? No. Patient's initial sepsis screen is negative. Does the patient have a suspected source of infection? No. Patient's initial sepsis screen is negative. Risk Assessment: Do you want to hurt yourself or someone else? Patient reports no desire to harm self or others. Onset of symptoms was July 08, 2023. 23:22 Method Of Arrival: EMS: [facility] lg3 23:22 Acuity: ARASH 3 lg3 Triage Assessment: 23:24 General: Appears in no apparent distress. comfortable, Behavior is calm, cooperative. lg3 Pain: Complains of pain in back of head. EENT: No deficits noted. No signs and/or symptoms were reported regarding the EENT system. Neuro: No deficits noted. Griggs Agitation-Sedation Scale (RASS): 0 - Alert and Calm Level of Consciousness is awake, alert, obeys commands, Oriented to person, place, time, situation. Cardiovascular: No deficits noted. Denies chest pain, shortness of breath, Capillary refill < 3 seconds Clubbing of nail beds is absent JVD is absent Patient's skin is warm and dry. Respiratory: No deficits noted. Airway is patent Respiratory effort is even, unlabored, Respiratory pattern is. GI: No deficits noted. No signs and/or symptoms were reported involving the gastrointestinal system. : No deficits noted. No signs and/or symptoms were reported regarding the genitourinary system. Derm: Skin is intact, is healthy with good turgor, Skin is dry, Skin is normal, Skin temperature is warm Wound noted back of head. Musculoskeletal: No deficits noted. No signs and/or symptoms reported regarding the musculoskeletal system. Circulation, motion, and sensation intact. Range of motion: intact in all extremities. Historical: - Allergies: 23:24 No Known Allergies; lg3 - Home Meds: 23:24 None [Active]; lg3 - PMHx: 23:24 None; lg3 - PSHx: 23:24 None; lg3 - Immunization history:: Adult Immunizations up to date, Client reports receiving the 2nd dose of the Covid vaccine, Flu vaccine is up to date. - Social history:: Smoking status: Patient denies any tobacco usage or history of. Patient/guardian denies using alcohol, street drugs. - Family history:: not pertinent. Screenin:35 [facility] ED Fall Risk Assessment (Adult) History of falling in the last 3 months, lg3 including since admission Yes- single mechanical fall (1 pt) Confusion or Disorientation No (0 pts) Intoxicated or Sedated No (0 pts) Impaired Gait No (0 pts) Mobility Assist Device Used No (0 pt) Altered Elimination No (0 pt) Score/Fall Risk Level 0 - 2 = Low Risk Oriented to surroundings, Maintained a safe environment, Educated pt \T\ family on fall prevention, incl call for assistance when getting out of bed, Assessed \T\ reinforced patient's understanding of fall precautions, Provided non-skid footwear. Abuse screen: Denies threats or abuse. Denies injuries from another. Nutritional screening: No deficits noted. Tuberculosis screening: No symptoms or risk factors identified. Assessment: 23:35 General: see triage assessment . lg3 07/09 01:47 Reassessment: Patient appears in no apparent distress at this time. No changes from lg3 previously documented assessment. Patient and/or family updated on plan of care and expected duration. Pain level reassessed. Patient is alert, oriented x 3, equal unlabored respirations, skin warm/dry/pink. Vital Signs: 07/08 23:22 BP 133 / 85; Pulse 77; Resp 17 S; Temp 98.1(O); Pulse Ox 99% on R/A; Weight 72.57 kg lg3 (R); Height 5 ft. 7 in. (R); Pain 01/06; 07/09 01:47 BP 130 / 78; Pulse 87; Resp 16 S; Pulse Ox 100% on R/A; lg3 07/08 23:22 Body Mass Index 25.06 (72.57 kg, 170.18 cm) lg3 07/08 23:22 Pain Scale: Adult lg3 ED Course: 07/08 23:18 Patient arrived in ED. as6 23:20 Garrett Corrales MD is Attending Physician. rt 23:21 Estela Connell, RN is Primary Nurse. lg3 23:24 Triage completed. lg3 23:24 Arm band placed on right wrist. lg3 23:35 Patient has correct armband on for positive identification. Placed in gown. Bed in low lg3 position. Call light in reach. Side rails up X 1. Client placed on continuous cardiac and pulse oximetry monitoring. NIBP monitoring applied. forklift technician on. Door closed. Noise minimized. Warm blanket given. Family accompanied patient. 23:35 Maintain EMS IV. Dressing intact. Good blood return noted. Site clean \T\ dry. Gauge \T\ lg 3 site: 20RAC. Patient maintains SpO2 saturation greater than 95% on room air. 07/09 00:12 CT Head C Spine In Process Unspecified. EDMS 00:19 XRAY Chest (1 view) In Process Unspecified. EDMS 01:10 Test, Serum Sent. lg3 02:47 Assist provider with laceration repair on back of head using sutures. Set up tray. lg3 Performed by Garrett Corrales MD Patient tolerated well. IV discontinued, intact, bleeding controlled, No redness/swelling at site. Pressure dressing applied. Administered Medications: 07/08 23:58 Drug: NS 0.9% IV 1000 ml Route: IV; Rate: 1 bolus; Site: right antecubital; lg3 07/09 02:12 Follow up: IV Status: Completed infusion; IV Intake: 1000ml lg3 02:12 Drug: Lidocaine Infiltration (1 %) 5 ml Volume: 5 ml; Route: Infiltration; Site: lg3 affected area; 02:27 Drug: Tetanus-Diphtheria Toxoid IM Adult 0.5 ml {Composition Mixer: [employer] ([employer]). lg3 Exp: 11/16/2113. Lot #: [id number]. } Route: IM; Site: right deltoid; 02:47 Follow up: Response: (VIS) Vaccine information sheet provided today. Questions and/or lg3 concerns addressed. VIS edition date: Jun 04, 2021.; No adverse reaction Medication: 02:48 Vaccine Information Statement (VIS) provided today. Questions and/or concerns lg3 addressed. VIS edition date: June 04, 2021. Intake: 02:12 IV: 1000ml; Total: 1000ml. lg3 Outcome: 01:53 Discharge ordered by . rt 02:48 Discharged to home ambulatory, with significant other. lg3 02:48 Condition: stable 02:48 Discharge instructions given to patient, Instructed on discharge instructions, follow up and referral plans. wound care, Demonstrated understanding of instructions, follow-up care, wound care. 02:49 Patient left the ED. lg3 Signatures: Dispatcher [employer] EDEstela Vazquez, RN RN lg3 Simone Kiran RN RN as6 Garrett Corrales MD MD rt
--- NOTE | 2023-07-09 01:54 | EDPHYS ---
Physician Documentation [facility] Name: Margret Cardona Age: 32 yrs Sex: Female : 1990 Arrival Date: 07/08/2023 Time: 23:16 Bed 6 Private MD: ED Physician Garrett Corrales HPI: 07/09 05:06 This 32 yrs old Female presents to ER via EMS with complaints of Syncope. rt 05:06 Patient presents to the ED with a syncopal event. Patient stood up, became acutely rt lightheaded, falling hitting the back of her head. There is reported laceration. Patient reports a mild headache, but denies any complaints in the ED, denies ever having chest pain. Denies other acute complaints, symptoms are moderate severity, no other aggravating alleviating factors.. Historical: - Allergies: 07/08 23:24 No Known Allergies; lg3 - Home Meds: 23:24 None [Active]; lg3 - PMHx: 23:24 None; lg3 - PSHx: 23:24 None; lg3 - Immunization history:: Adult Immunizations up to date, Client reports receiving the 2nd dose of the Covid vaccine, Flu vaccine is up to date. - Social history:: Smoking status: Patient denies any tobacco usage or history of. Patient/guardian denies using alcohol, street drugs. - Family history:: not pertinent. ROS: 07/09 05:06 Constitutional: Negative for fever, chills, and weight loss, Cardiovascular: Negative rt for chest pain, palpitations, and edema, Respiratory: Negative for shortness of breath, cough, wheezing, and pleuritic chest pain, Abdomen/GI: Negative for abdominal pain, nausea, vomiting, diarrhea, and constipation, MS/Extremity: Negative for injury and deformity, Skin: Negative for injury, rash, and discoloration. Neuro: Positive for dizziness, syncope. Exam: 05:06 Constitutional: This is a well developed, well nourished patient who is awake, alert, rt and in no acute distress. Head/Face: Normocephalic, atraumatic. Chest/axilla: Normal chest wall appearance and motion. Nontender with no deformity. No lesions are appreciated. Cardiovascular: Regular rate and rhythm with a normal S1 and S2. No gallops, murmurs, or rubs. Normal PMI, no JVD. No pulse deficits. Respiratory: Lungs have equal breath sounds bilaterally, clear to auscultation and percussion. No rales, rhonchi or wheezes noted. No increased work of breathing, no retractions or nasal flaring. Abdomen/GI: Soft, non-tender, with normal bowel sounds. No distension or tympany. No guarding or rebound. No evidence of tenderness throughout. Skin: Warm, dry with normal turgor. Normal color with no rashes, no lesions, and no evidence of cellulitis. MS/ Extremity: Pulses equal, no cyanosis. Neurovascular intact. Full, normal range of motion. Neuro: Awake and alert, GCS 15, oriented to person, place, time, and situation. Cranial nerves II-XII grossly intact. Motor strength 5/5 in all extremities. Sensory grossly intact. Cerebellar exam normal. Normal gait. Psych: Awake, alert, with orientation to person, place and time. Behavior, mood, and affect are within normal limits. 05:06 Head/face: 4 cm stellate laceration noted to the posterior scalp. 05:06 ECG was reviewed by the Attending Physician. Vital Signs: 07/08 23:22 BP 133 / 85; Pulse 77; Resp 17 S; Temp 98.1(O); Pulse Ox 99% on R/A; Weight 72.57 kg lg3 (R); Height 5 ft. 7 in. (R); Pain 01/06; 07/09 01:47 BP 130 / 78; Pulse 87; Resp 16 S; Pulse Ox 100% on R/A; lg3 07/08 23:22 Body Mass Index 25.06 (72.57 kg, 170.18 cm) lg3 07/08 23:22 Pain Scale: Adult lg3 Laceration: 05:06 Wound Repair of 4cm ( 1.6in ) subcutaneous laceration to scalp. Irregularly shaped.. rt Distal neuro/vascular/tendon intact. Anesthesia: Wound infiltrated with 3 mls of 1% lidocaine. Wound prep: Extensive cleansing by nurse. Skin closed with 5 3-0 Prolene using interrupted sutures and sterile technique. Dressed with 4x4's. Patient tolerated well. MDM: 07/08 23:20 Patient medically screened. rt 07/09 05:06 Differential Diagnosis Syncope, dysrhythmia, hypoglycemia, anemia, [place] hemorrhage. rt 05:06 Data reviewed: vital signs, nurses notes, lab test result(s), EKG, radiologic studies. rt Independent interpretation of the following test(s) in the Emergency Department CT Scan: My interpretation is The emergency room interpretation of the CT scan images. Test considered but Not performed: CT: Low suspicion for PE, CT angiogram not indicated. Counseling: I had a detailed discussion with the patient and/or guardian regarding the historical points, exam findings, and any diagnostic results supporting the discharge/admit diagnosis, lab results, radiology results, the need for outpatient follow up. Response to treatment: the patient's symptoms have markedly improved after treatment. 07/08 23:25 Order name: Basic Metabolic Panel; Complete Time: 01:14 rt 07/08 23:25 Order name: CBC with Diff; Complete Time: :59 rt 07/08 23:25 Order name: LFT's; Complete Time: :14 rt 07/08 23:25 Order name: Troponin HS; Complete Time: : rt 07/08 23:59 Order name: Test, Serum; Complete Time: 01:26 rt 07/08 23:25 Order name: XRAY Chest (1 view) rt 07/08 23:25 Order name: CT Head C Spine rt 07/08 23:25 Order name: EKG; Complete Time: 23:26 rt 07/08 23:25 Order name: Cardiac monitoring; Complete Time: 23:37 rt 07/08 23:25 Order name: EKG - Nurse/Tech; Complete Time: 23:37 rt 07/08 23:25 Order name: IV Saline Lock; Complete Time: 23:37 rt 07/08 23:25 Order name: Labs collected and sent; Complete Time: 23:37 rt 07/08 23:25 Order name: O2 Per Protocol; Complete Time: 23:37 rt 07/08 23:25 Order name: O2 Sat Monitoring; Complete Time: 23:37 rt 07/08 23:25 Order name: Wound Care; Complete Time: 02:28 rt EC:06 Rate is 73 beats/min. Rhythm is regular, Normal Sinus Rhythm with No ectopy. QRS [place] rt is Normal. NM interval is normal. QRS interval is normal. QT interval is normal. No Q waves. T waves are Normal. No ST changes noted. Interpreted by me. Administered Medications: 07/08 23:58 Drug: NS 0.9% IV 1000 ml Route: IV; Rate: 1 bolus; Site: right antecubital; lg3 07/09 02:12 Follow up: IV Status: Completed infusion; IV Intake: 1000ml 3 02:12 Drug: Lidocaine Infiltration (1 %) 5 ml Volume: 5 ml; Route: Infiltration; Site: lg3 affected area; 02:27 Drug: Tetanus-Diphtheria Toxoid IM Adult 0.5 ml {Stars Coordinator: [employer] ([employer]). lg3 Exp: 11/16/2113. Lot #: [id number]. } Route: IM; Site: right deltoid; 02:47 Follow up: Response: (VIS) Vaccine information sheet provided today. Questions and/or lg3 concerns addressed. VIS edition date: Jun 04, 2021.; No adverse reaction Disposition Summary: 07/09/23 01:53 Discharge Ordered Location: Home rt Problem: new rt Symptoms: have improved rt Condition: Stable rt Diagnosis - Syncope rt - Scalp laceration rt Followup: rt - With: Private Physician - When: 10 - 14 days - Reason: Staple/Suture removal Discharge Instructions: - Discharge Summary Sheet rt - Laceration Care, Adult rt - Syncope rt Forms: - Medication Reconciliation Form rt - Thank You Letter rt - Antibiotic Education rt - Prescription Opioid Use rt - Patient Portal Instructions rt - Leadership Thank You Letter rt Signatures: Dispatcher [employer] Estela Freitas, JAKUB RN lg3 Garrett Corrales MD MD rt
[2023-07-09] MEDS ORDERED: TDAP (DIPHTH,PERTUSS(ACELL),TET VAC) 0.5 ML VIAL IMVAC ONE (02:32)
[2023-07-09 02:53] VITALS: TEMP 98.1
[2023-07-09 02:54] VITALS: BP 130/78; O2SAT 100
--- NOTE | 2023-07-10 14:11 | RAD REPORT ---
EXAM DESCRIPTION: CT - Head C Spine Mpr Wo Con - 07/09/2023 6:45 am CLINICAL HISTORY: TRAUMA TECHNIQUE: Axial computed tomography images of the head/brain and cervical spine without intravenous contrast. Sagittal and coronal reformatted images were created and reviewed. This CT exam was pe rformed using one or more of the following dose reduction techniques: automated exposure control, a djustment of the mA and/or kV according to patient size, and/or use of iterative reconstruction techn ique. COMPARISON: No relevant prior studies available. FINDINGS: Brain: Unremarkable. No hemorrhage. No significant white matter disease. No edema. Ventricles: Unremarkable. No ventriculomegaly. Skull: No acute fracture. Sinuses: Unremarkable as visualized. No acute sinusitis. Mastoid air cells: Unremarkable as visualized. No mastoid effusion. Vertebrae: Unremarkable. No acute fracture. Normal alignment. Discs/spinal canal/neural foramina: No acute findings. No spinal canal stenosis. Soft tissues: Mild left parieto-occipital soft tissue swelling with adjacent laceration. IMPRESSION: 1. No acute intracranial or extra-axial abnormality. 2. No acute cervical spine injury. Electronically signed by: Barbara Ortiz MD 07/09/2023 12:47 AM CDT Due to temporary technical issues with the PACS/Fluency reporting system, reports are being signed by the in house radiologist without review as a courtesy to ensure prompt reporting. The interpreting r adiologist is fully responsible for the content of the report.
--- NOTE | 2023-07-10 14:13 | RAD REPORT ---
EXAM DESCRIPTION: RAD - Chest Single View - 07/09/2023 12:17 am CLINICAL HISTORY: Syncope TECHNIQUE: Frontal view of the chest. COMPARISON: No relevant prior studies available. FINDINGS: Lungs: Unremarkable. No consolidation. Pleural space: Unremarkable. No pneumothorax. Heart: Unremarkable. No cardiomegaly. Mediastinum: Unremarkable. Bones/joints: Unremarkable. IMPRESSION: No acute disease. Electronically signed by: Barbara Ortiz MD 07/09/2023 12:47 AM CDT Due to temporary technical issues with the PACS/Fluency reporting system, reports are being signed by the in house radiologist without review as a courtesy to ensure prompt reporting. The interpreting r adiologist is fully responsible for the content of the report.
--- NOTE | 2023-07-10 17:09 | EKG ---
Test Date: 2023-07-08 Test Time: 23:29:59 Cardio Clinician: ROBERTO MEASUREMENT RESULTS: Intervals: Rate: 73 ME: 136 QRSD: 88 QT: 370 QTc: 407 [place]: P: -13 ME: 136 QRS: 87 T: 94 INTERPRETIVE STATEMENTS: Normal sinus rhythm Nonspecific T wave abnormality Abnormal ECG Electronically Signed On 07-10-23 17:06:15 CDT by Robin Sol
== END 2023-07-09 02:49 | disposition home or self-care (01) ==
LOC: ER 23:16
PROC: 0JQ00ZZ Repair Scalp Subcutaneous Tissue and Fascia, Open Approach (ICD-10-PCS; principal; 2023-07-09)
DX: R55 Syncope and collapse (principal); S01.01XA Laceration without foreign body of scalp, initial encounter; W18.39XA Other fall on same level, initial encounter; Y93.9 Activity, unspecified; Y92.9 Unspecified place or not applicable; Z23 Encounter for immunization
CPT/HCPCS: 96361; 93005; 85025; 80048; 36415; 84703; 80076; 84484; 70450; 72125; 71045; 90471; 96360; 99285; 12002; J2001; J7030